=== PATIENT | male | born 1945 | race African-American/Black ===

== ENCOUNTER 2017-04-15 08:01 | Day surgery (SDC) | payer MEDICARE, BC ==
[~2017-04-15] VITALS: Ht 172.7 cm; Wt 78.0 kg
[~2017-04-15 08:01] MED LIST: ATOR20TA65 PO; HYDR12.529 PO; SIMV10TA6 PO
[2017-04-15] MEDS ORDERED: TROPICAMIDE 1% OPHTH DROPS 15ML LEFTEYE NR (09:15)
[2017-04-15] MEDS ORDERED: PHENYLEPHRINE HCL 10% OPHTH DROPS 5ML LEFTEYE NR (09:15)
[2017-04-15] MEDS ORDERED: CYCLOPENTOLATE HCL 1% OPHTH DROPS 2ML LEFTEYE NR (09:15)
[2017-04-15] MEDS ORDERED: BALANCED SALT IRRIG SOLN COMB1 500ML OP SCH (09:30)
[2017-04-15] MEDS ORDERED: LACTATED RINGERS 1,000 ML IV SCH (10:30)
[2017-04-15] MEDS ORDERED: HYALURONATE SODIUM 14 MG/ML 0.85ML SYRINGE IO ONE ×2 (10:48→12:07)
[2017-04-15] MEDS ORDERED: FENTANYL CITRATE/PF 50MCG/ML 2ML VIAL ONE (11:33)
[2017-04-15] MEDS ORDERED: MIDAZOLAM HCL 2 MG/2 ML VIAL ONE (11:33)
[2017-04-15] MEDS ORDERED: BALANCED SALT IRRIG SOLN 15ML ONE (13:43)
[2017-04-15] MEDS ORDERED: CIPROFLOXACIN 0.3% OPHTH SOLN 2.5ML ONE (13:43)
[2017-04-15] MEDS ORDERED: LIDOCAINE HCL/PF 2% 20 MG/ML 10ML VIAL ONE (13:43)
[2017-04-15] MEDS ORDERED: TETRACAINE 0.5% OPHTH DROPS 4ML ONE (13:43)
[2017-04-15] MEDS ORDERED: NEO/POLYMYX B SULF/DEXAMETH OPHTH OINT 3.5GM ONE (13:43)
[2017-04-15] MEDS ORDERED: PREDNISOLONE ACETATE 1% OPHTH DROPS 1ML ONE (13:43)
[2017-04-15] MEDS ORDERED: BUPIVACAINE HCL/PF 0.75% (7.5MG/ML) 10ML ONE (13:43)
[2017-04-15] MEDS ORDERED: LIDOCAINE HCL 2%/EPINEPHRINE 1:100,000 20 ML VIAL INFIL ONE (13:43)
== END 2017-04-15 13:00 | disposition home or self-care (01) ==
LOC: OR 08:01
PROVIDERS: ATTEND Ophthalmology
DX: H25.89 Other age-related cataract (principal); I10 Essential (primary) hypertension; E78.2 Mixed hyperlipidemia; E78.5 Hyperlipidemia, unspecified; E78.00 Pure hypercholesterolemia, unspecified; Z85.46 Personal history of malignant neoplasm of prostate; Z98.890 Other specified postprocedural states
CPT/HCPCS: 66984; J2250; J3010; J3490; J7120; V2632

== ENCOUNTER 2017-05-27 06:30 | Day surgery (SDC) | payer MEDICARE, BC ==
[~2017-05-27] VITALS: Ht 172.7 cm; Wt 78.0 kg
[2017-05-27] MEDS ORDERED: PHENYLEPHRINE HCL 10% OPHTH DROPS 5ML RIGHTEYE ONE (07:20)
[2017-05-27] MEDS ORDERED: TROPICAMIDE 1% OPHTH DROPS 15ML RIGHTEYE ONE (07:20)
[2017-05-27] MEDS ORDERED: CYCLOPENTOLATE HCL 1% OPHTH DROPS 2ML RIGHTEYE ONE (07:20)
[2017-05-27] MEDS ORDERED: BALANCED SALT IRRIG SOLN COMB1 500ML OP SCH (07:30)
[2017-05-27] MEDS ORDERED: PROPOFOL 200MG/20ML VIAL IV ONE (08:59)
[2017-05-27] MEDS ORDERED: MIDAZOLAM HCL 2 MG/2 ML VIAL ONE (08:59)
[2017-05-27] MEDS ORDERED: FENTANYL CITRATE/PF 50MCG/ML 2ML VIAL ONE (08:59)
[2017-05-27] MEDS ORDERED: LIDOCAINE HCL/PF 1% 10 MG/ML 5ML VIAL ONE (09:00)
[2017-05-27] MEDS ORDERED: GLYCOPYRROLATE 0.2 MG/ML 2ML VIAL ONE (09:00)
[2017-05-27] MEDS ORDERED: ONDANSETRON HCL 4MG/2ML VIAL ONE (09:01)
[2017-05-27] MEDS ORDERED: HYALURONATE SODIUM 14 MG/ML 0.85ML SYRINGE IO ONE (09:16)
[2017-05-27] MEDS ORDERED: SODIUM CHLORIDE 0.9% 1,000 ML IV ONE (09:26)
[2017-05-27] MEDS ORDERED: ONDANSETRON HCL 4MG/2ML VIAL IV PRN (09:30)
[2017-05-27] MEDS ORDERED: PREDNISOLONE ACETATE 1% OPHTH DROPS 1ML ONE (13:18)
[2017-05-27] MEDS ORDERED: TETRACAINE 0.5% OPHTH DROPS 4ML ONE (13:18)
[2017-05-27] MEDS ORDERED: CIPROFLOXACIN 0.3% OPHTH SOLN 2.5ML ONE (13:18)
[2017-05-27] MEDS ORDERED: LIDOCAINE HCL 2%/EPINEPHRINE 1:100,000 20 ML VIAL INFIL ONE (13:18)
[2017-05-27] MEDS ORDERED: BALANCED SALT IRRIG SOLN 15ML ONE (13:18)
[2017-05-27] MEDS ORDERED: BUPIVACAINE HCL/PF 0.75% (7.5MG/ML) 10ML ONE (13:18)
[2017-05-27] MEDS ORDERED: NEO/POLYMYX B SULF/DEXAMETH OPHTH OINT 3.5GM ONE (13:18)
== END 2017-05-27 10:40 | disposition home or self-care (01) ==
LOC: OR 06:30
PROVIDERS: ATTEND Ophthalmology
DX: H25.89 Other age-related cataract (principal); I10 Essential (primary) hypertension; Z90.79 Acquired absence of other genital organ(s); E78.00 Pure hypercholesterolemia, unspecified
CPT/HCPCS: 66984; J2250; J2405; J3010; J3490; J7120; V2632; J2704